=== PATIENT | female | born 1970 | race Caucasian/White ===

== ENCOUNTER 2018-03-06 07:54 | Day surgery (SDC) | payer OTHER, SELFPAY ==
[2018-03-06 08:12] VITALS: BP 118/81; PULSE 98; RESP 18; TEMP 36.5; O2SAT 100; BMI 23.8
[2018-03-06 08:25] LABS: Hemoglobin 13.9 g/dl (12.0-15.0); Mean Corp Hgb Conc 34.8 g/gl (32-36); Mean Corpuscular Volume 89.3 fL (81-99); Mean Platelet Vol. 9.5 fl (6.2-12.0); Platelet Count 283 K/mm3 (150-450); RBC Distribution Width CV 12.2 % (11.6-14.6); RBC Distribution Width SD 39.2 fl (35.1-43.9); Red Blood Count 4.48 M/mm3 (4.2-5.4); Scan Indicated on CBC? Y/N NO; White Blood Count 5.6 K/mm3 (4.4-11.0)
[2018-03-06] MEDS: Acetaminophen 500 MG Tablet 1000 MG PO (08:25)
[2018-03-06] MEDS: Ketorolac 60 MG/2 ML Vial IM (08:25)
[2018-03-06 08:33] LABS: Internal QC Validated? YES +Cl - CLEAR BKGD; Pregnancy, Urine Negative Negative
--- NOTE | 2018-03-06 09:35 | EMB_PTH ---
PATIENT: BIANCA WILKINS LOC: [facility] [place] U#:[id number] AGE/SX: 47/F ROOM: RE03/06/[address]: Dr. Libby Bailey MD : [id number] BED: DIS: 03/06/2018 SPEC #: [id number] RECD: 03/06/18 11:29 STATUS: LEI LIZETH #: [id number] MANISH: 03/06/18 09:[address]: Libby Bailey DEPT: SURGICAL PATHOLOGY RECD BY: Margarito Medrano ENTERED: 03/06/18 12:13 SP TYPE: ENDOM BX/C DAMEONHR DR: Dr. Darryl Rizo MD Tissues: Endometrium, NOS Procedures: Surgery Specimen Level IV HEADER OPERATION: Hysteroscopy, D & C, polypectomy, Mariajose PRE-OP DIAGNOSIS: Right ovarian cyst; endometrial bleeding; abnormal uterine bleeding TISSUE SUBMITTED: Endometrial curettings MICROSCOPIC DIAGNOSIS Endometrial curettings: Mildly disordered proliferative endometrium. See comment. Fragments of benign endocervical mucosa with chronic inflammation and squamous metaplasia. LISA:maite 03/07/18 COMMENT Focal superimposed secretory changes are also noted. MICROSCOPIC DESCRIPTION Slides are reviewed. GROSS DESCRIPTION Received in fixative is one container labeled with the patient's name and designated endometrial curettings. The specimen consists of multiple irregular fragments of pink-red soft tissue that in aggregate measure 2.5 x 2.5 x 0.3 cm. The entire specimen is submitted in one cassette. / LISA:maite 03/06/18 TC:5 CPT: 29225
--- NOTE | 2018-03-06 11:11 | PCM.DC.D&C ---
Discharge Diet: No Restrictions Discharge Activity: Return to Normal Activity, May Shower, May Take a Tub Bath - in 2 weeks. Return to work on:: 03/10/18 May shower in (days): 1 May resume sexual activity in: 3 weeks Call your doctor if your incision/area has: Sudden Increased Bleeding, Foul Smelling Discharge Call your doctor if you observe: Fever of 101 or Higher, Using more than one pad per hour - for 2 hrs in a row, Uncontrolled pain Allergies/Adverse Reactions: Allergies No Known Allergies Allergy (Verified 02/28/18 11:51) Medications to take at Discharge Calcium Carbonate/Vitamin D3 [Calcium 600-Vit D3 800 Tablet] 1 each PO BID 02/28/18 Cholecalciferol (Vitamin D3) [Vitamin D3] 5,000 unit PO DAILY 02/28/18 Phentermine/Topiramate [Qsymia 15 mg-92 mg Capsule] 1 each PO DAILY 02/28/18 Triamterene 37.5MG/Hctz 25MG [Dyazide (G)] 1 cap PO DAILY 02/28/18 Primary Care Physician: Darryl Rizo MD [Primary Care Provider] - Please Follow Up With: Libby Bailey MD - [phone] When: in my office in 4 weeks or as needed
--- NOTE | 2018-03-06 11:12 | PCM.OPRPT ---
Report of Operation Date of Procedure: 03/06/18 Pre-Operative Diagnosis: Menorrhagia and suspected endometrial polyp Post-Operative Diagnosis: Menorrhagia Surgery/Procedure Performed:: Hysteroscopy dilation and curettage with Mariajose endometrial ablation Description of Surgical Findings:: Normal-appearing cervix and vagina, normal-appearing endometrial cavity. No endometrial polyps. sanitation worker hosing machinery: Estelle Galloway MS3 Type of Anesthesia:: MAC/Supplemental/Local Anesthesiologist: Rip Chávez Special Medications: none Specimen's removed: Endometrial curettings Drains: None Estimated Blood Loss (mL): 10 cc Fluids Replaced: 600 cc LR Description of Procedure: The patient was taken to the OR where she was prepped and draped in dorsal lithotomy position. The weighted speculum was placed in the vagina and the anterior lip of the cervix was grasped with a single-tooth tenaculum. A paracervical block was administered with 1% lidocaine with 1-200,000 epinephrine solution. The cervix was dilated serially with Hegar dilators. The 5mm hysteroscope was placed into the uterine cavity and the above findings were noted. Bilateral tubal ostia were identified. The uterus sounded to 8cm and the cervical length was 4 cm. The endometrial cavity length was 4cm. The hysteroscope was removed. A gentle sharp curettage was done of the uterine cavity. The specimen was handed off and sent to pathology. The Mariajose device was set to 4cm. The instrument was then seated into the endometrial cavity and the indicator was in the green. The cervical seal balloon was inflated and the uterine integrity test was passed. The ablation procedure was initiated and completed without interruption. During the ablation procedure gentle traction was held on the tenaculum and the Mariajose device was held up against the uterine fundus. When the ablation procedure was completed the Mariajose was removed. The tenaculum was removed and the tenaculum site was noted to be hemostatic. All sponge and needle counts were correct. A vaginal sweep was performed by me. The patient was awakened and taken to the recovery room in stable condition. Hysteroscopic ins: 200cc normal saline Hysteroscopic outs: 150 cc Findings: Endometrial cavity: normal, no fibroids or polyps noted Cervix: normal Vagina: normal
[2018-03-06 11:23] VITALS: BP 103/66; BP 118/81; PULSE 82; RESP 16; TEMP 36.3; O2SAT 100
[2018-03-06 11:25] VITALS: BP 101/71; BP 118/81; PULSE 72; RESP 16; O2SAT 100
[2018-03-06 11:30] VITALS: BP 106/68; BP 118/81; PULSE 76; RESP 16; O2SAT 100
[2018-03-06 11:31] VITALS: BP 106/68; BP 118/81; PULSE 78; RESP 16; TEMP 36.3; O2SAT 100
[2018-03-06 12:27] VITALS: BP 118/81
== END 2018-03-06 12:29 | disposition home or self-care (01) ==
LOC: SDC 07:54 → AC 07:57
PROVIDERS: Family Provider Family Medicine; PCP Family Medicine; Visit Provider Obstetrics & Gynecology
PROC: 0U5B8ZZ Destruction of Endometrium, Via Natural or Artificial Opening Endoscopic (ICD-10-PCS; CPT 58558; principal; 2018-03-06 09:20)
DX: N92.0 Excessive and frequent menstruation with regular cycle (principal); E66.9 Obesity, unspecified; Z68.23 Body mass index [BMI] 23.0-23.9, adult; Z79.899 Other long term (current) drug therapy
CPT/HCPCS: 58563; 36415; 81025; 85027; 88305; J7120

== ENCOUNTER 2019-06-14 16:17 | Emergency (ER) | payer OTHER, SELFPAY ==
[2019-06-14 16:18] VITALS: BP 138/91; PULSE 103; RESP 18; TEMP 36.9; O2SAT 98; BMI 25.0
--- NOTE | 2019-06-14 16:41 | ED.VIS.HA ---
History of Present Illness <Manoj Lacy - Last Filed: 06/14/19 17:26> Informant: Patient Onset: Days - 5 days Context: Gradual, Onset Timing: Continuous Quality: Similar Prior Headaches, Throbbing Current Severity: Moderate Maximum Severity: Moderate Worsened by: nothing Relieved by: nothing Associated Symptoms: Nausea. Negative for: Fever, Vomiting, Sore Throat, Sinus Pressure, Numbness, Tingling, Preceding Aura, Visual Changes, Blurred Vision, Photophobia, Visual Loss Injury: - - no injury Narrative: 48-year-old female with a history of migraine headaches presents to the emergency department with 5 days of a progressively worsening headache. It feels like her previous migraine headaches. She has had nausea without vomiting. She feels somewhat lightheaded. She has not had any difficulty with speech or ambulation. No fevers. No vomiting or diarrhea. No neck pain. No tinnitus. No head trauma. She has been taking Excedrin Migraine [id number] without relief. She states that she used to be on daily medicines for migraines but has been off of them for several years. 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 Denies: Abdominal pain, Vomiting Neurological: Reports: Headache. Denies: Weakness, Parasthesia, Numbness <Adan Pozo - Last Filed: 06/14/19 17:46> Physical Exam Vital Signs/Narrative: Vital Signs Temp Pulse Resp BP Pulse Ox 06/14/19 16:18 98.4 F 103 H 18 138/91 H 98 <Manoj Lacy - Last Filed: 06/14/19 17:26> Vital Signs/Narrative: Vital Signs Temp Pulse Resp BP Pulse Ox 06/14/19 16:18 98.4 F 103 H 18 138/91 H 98 Inital Vital Signs reviewed: Yes General: Well nourished, Well developed Head: NC, AT. Negative for: Tenderness, Temporary Artery Tenderness, Vesicular Rash, Sinus Tenderness Eyes: Perrl, EOMI ENT: Moist mucous membranes Neck: Supple, No Lymphadenopathy, No Meningismus. Negative for: Paraspinal Tenderness Cardiovascular: Regular rate, Regular rhythm, No murmurs Respiratory: No distress, CTA bilaterally, Chest nontender Abdomen: Soft, Nontender, Nondistended, Normal bowel sounds, No masses Back: Nontender Extremities: Nontender, No edema Skin: Normal color, No rash Neuro: Alert, Oriented x3, Cranial nerves II-XII grossly intact, Normal Strength, Normal Sensation, Normal Gait - NIH Stroke Scale 1a Level of Consciousness: 0 1b LOC Questions (Score 2 if aphasic/stupor): 0 1c LOC Commands (Only score 1st attempt): 0 2 Best Gaze (If aphasic, use reflexive mvmts.): 0 3 Visual: 0 4 Facial Palsy: 0 5 Motor Arm Right (UN = amputation/fusion): 0 5 Motor Arm Left: 0 6 Motor Leg Right: 0 6 Motor Leg Left: 0 7 Limb ataxia (Only + if out of proportion): 0 8 Sensory (Aphasia/stupor=0 or 1, coma=2): 0 9 Best Language: 0 10 Dysarthria (mute, coma=2, intubated=UN): 0 11 Extinction and Inattention (only scored if +): 0 Total Score: 0 <Adan Pozo - Last Filed: 06/14/19 17:46> Diagnostic/Tx/Re-eval - Medical Decision Making Tightness with our PA. Patient complaining of a bitemporal headache. Gradual onset since Saturday. She denies any fall or trauma. She is on no blood thinners. No sinus congestion. No fever. She does have a history of migraines. This was not a thunderclap headache. It was gradual onset. There is no family history of aneurysms or intracranial bleeds. Middle-aged female no acute distress. Vital signs are stable afebrile. HEENT exam unremarkable. Neck nontender no meningismus. Lungs are clear. Heart regular rhythm no murmur. Abdomen soft nontender. Moving all 4 extremities. Neurovascular intact. Her neurologic exam is normal. She is awake alert. No facial droop. Normal speech. Equal symmetrical population health coach strength. Fingertip to nose within normal limits. Dorsi plantarflexion intact. NIH is 0. Patient treated with IV fluids, Toradol and Reglan. On repeat exam she is feeling better and her symptoms are resolving. Repeat neurologic exam is normal. Impression: 1. Acute cephalgia with a history of migraine <Manoj Lacy - Last Filed: 06/14/19 17:26> ED Disposition <Manoj Lacy - Last Filed: 06/14/19 17:26> <Adan Pozo - Last Filed: 06/14/19 17:46> - Plan for ED Patient: Disposition: Home or Assisted Living Diagnosis: Headache Instructions: ED, Migraine (Classical) Referrals: Darryl Rizo MD [Primary Care Provider] -
[2019-06-14] MEDS: 0.9% Normal Saline 1,000 ML 1000 ML IV (16:56)
[2019-06-14] MEDS: DiphenhydrAMINE 50 MG/ML Syringe 25 MG IV (16:56)
[2019-06-14] MEDS: Metoclopramide 10 MG/2 ML Vial IV (16:57)
[2019-06-14] MEDS: Ketorolac 15 MG/ML Vial IV (16:57)
[2019-06-14 17:02] LABS: Absolute Lymphocyte Count 1.12 X10^3/uL (0.83-4.51); Absolute Neutrophil Count 4.7 X10^3/uL (2.0-7.7); Basophil# 0.04 X10^3/uL; Basophil% 0.6 % (0-1); Eosinophil# 0.08 X10^3/uL; Eosinophils% 1.3 % (0-5); Hematocrit 39.2 % (37-47); Hemoglobin 13.4 g/dL (12.0-15.0); Lymphocyte # 1.12 X10^3/ul (4.0); Lymphocyte % 17.6 % (19-41); Mean Corp Hgb Conc 34.2 g/dL (32-36); Mean Corpuscular Hgb 31.5 pg (27.0-32.0); Mean Platelet Vol. 9.4 fl (6.2-12.0); Monocyte# 0.42 X10^3/uL; Monocyte% 6.6 % (0-10); NRBC Flagged by Analyzer 0 % (0-5); Neutrophil % 73.6 % (47-70); Platelet Count 267 K/mm3 (150-450); RBC Distribution Width CV 11.6 % (11.6-14.6); RBC Distribution Width SD 39.1 fl (35.1-43.9); Red Blood Count 4.26 M/mm3 (4.2-5.4); White Blood Count 6.4 K/mm3 (4.4-11.0)
[2019-06-14 17:23] LABS: Anion Gap 5 (5-15); BUN 23 mg/dL (7-18); BUN/Creat Ratio 15.3 RATIO (10-20); Calcium,Total 9.2 mg/dL (8.5-10.1); Chloride 104 mmol/L (98-107); EST Glomerular Filtration Rate 39 mL/min (>60); Est Glom Filt Rate - Afr Amer 47 mL/min (>60); Estimated Creatinine Clearance 44.12 ml/min; Glucose 84 mg/dL (74-106); Potassium 3.1 mmol/L (3.5-5.1); Sodium Level 140 mmol/L (136-145)
[2019-06-14 18:12] LABS: Mucous, Urine 0 SEEN /hpf (<or=2+)
[2019-06-14 18:17] VITALS: BP 109/68; PULSE 84; RESP 16; O2SAT 100
[2019-06-14 18:23] LABS: Color, Urine Yellow (Yellow); Glucose, Dipstick Normal (Normal); Ketone-Dipstick Negative (Negative); Leukocyte Esterase-Dipstick Negative /ul (Negative); Nitrite-Dipstick Negative (Negative); Occult Blood-Urine Negative /ul (Negative); Protein-Dipstick Negative (Negative); Urine Bilirubin Dipstick Negative (Negative); Urine Clarity Clear (Clear); Urine Urobilinogen Normal (Normal)
[2019-06-14 18:29] LABS: White Blood Cells 5-10 SEEN /hpf (0-5)
[2019-06-14 18:30] LABS: Bacteria RARE /hpf (None Seen); Red Blood Cells-Urine 0-5 SEEN /hpf (0-5); Squamous Epithelial Cells - UA 0-5 SEEN /hpf (5-10)
== END 2019-06-14 18:34 | disposition home or self-care (01) ==
PROVIDERS: Emergency Provider Physician Assistant Medical; Family Provider Family Medicine; PCP Family Medicine
DX: R51 Headache (principal); R42 Dizziness and giddiness; R11.0 Nausea; Z79.899 Other long term (current) drug therapy; Z86.69 Personal history of other diseases of the nervous system and sense organs
CPT/HCPCS: 80048; 81001; 85025; 96361; 96374; 96375; 99282; J7030